=== PATIENT | female | born 1950 | race Caucasian/White ===

== ENCOUNTER 2016-08-31 13:43 | Emergency (ER) | payer MEDICARE, MEDICAID ==
[~2016-08-31] VITALS: Ht 157.5 cm; Wt 59.0 kg
[~2016-08-31 13:43] MED LIST: ADVAIR 100/501 PUFF1 INH; ALBUTEROL2.5 MG/3 M INH; AUGMENTIN 875-1 EACH PO; AZITHROMYCIN250 MG ORAL; CEPHALEXIN500 MG ORAL; ENTOCORT EC3 MG PO; LEVAQUIN500 MG ORAL; MECLIZINE HCL25 MG ORAL; MEDROL DOSEPAK4 MG ORAL; METRONIDAZOLE500 MG ORAL; NASONEX17 GM NASAL; NORCO 5-325 TA1 EACH ORAL; PREDNISONE20 MG ORAL; SILVADENE CREAM50 GM TOP; SINGULAIR10 MG ORAL; VICODIN 5-5001 EACH PO; XOPENEX0.5 MG HHN; XOPENEX0.63 MG/3 HHN; ZOFRAN ODT4 MG ORAL; [UNRECOGNIZED DRUG - OTHER] PO; [UNRECOGNIZED DRUG - REMARK]
--- NOTE | 2016-08-31 14:30 | Emergency Room Report ---
History of Present Illness General Chief Complaint: Lower Extremity Injury Source: Patient Present Illness HPI Patient is a 66-year-old female who presented after having increased pain to her right foot. The patient stated that her right second toe had been caught under a carpet and was plantarflexed. Patient reported having had difficulty moving her toe afterward and began having subsequent bruising. Patient had prior joint replacement surgery in the same toe. She has a noticed increased bruising. Allergies: Coded Allergies: No Known Allergies (Unverified , 07/05/12) Patient History Past Medical History: see triage record Reviewed Nursing Documentation: PMH: Agreed, PSxH: Agreed Nursing Documentation-PM Past Medical History: No History, Except For Hx Asthma: Yes Hx Gastrointestinal Problems: Yes - colitis Review of Systems All Other Systems: negative except mentioned in HPI Physical Exam Vital Signs Date Time Temp Pulse Resp B/P Pulse Ox O2 Delivery O2 Flow Rate FiO2 08/31/16 14:22 98.1 16 127/76 99 Room Air General Appearance: well appearing, no apparent distress, alert, GCS 15 Head: normocephalic, atraumatic ENT: hearing grossly normal, normal voice Neck: full range of motion, supple Respiratory: no respiratory distress, speaking full sentences Musculoskeletal: no calf tenderness, other - discoloration, decreased arom to right 2nd toe. Neurologic: normal inspection, alert, responsive, normal gait Psychiatric: mood/affect normal Skin: no rash, other - bruising Medical Decision Making Diagnostic Impression: Primary Impression: Toe fracture, right ER Course Patient presented for toe pain. Differential diagnoses included was not limited to fracture, dislocation, sprain among others. X-ray imaging of the right foot was ordered due to patient's difficulty moving her toe. Other X-Ray Diagnostic Results Other X-Ray Diagnostic Results : EP Interpretation: Yes Findings: no dislocation, other - toe fracture proximal intraphalangeal joint, s/p joint replacement, djd Number of Views: 3 Last Vital Signs Date Time Temp Pulse Resp B/P Pulse Ox O2 Delivery O2 Flow Rate FiO2 08/31/16 14:22 98.1 16 127/76 99 Room Air Status: improved Disposition: HOME, SELF-CARE Condition: Stable Scripts Tramadol Hcl* (ULTRAM*) 50 Mg Tablet 50 MG ORAL Q6H Y for For Pain, #15 TAB 0 Refills Prov: Harsha Domingo 08/31/16 Harsha Domingo Aug 31, 2016 14:29
[2016-08-31] MEDS ORDERED: TRAMADOL HCL50 MG ORAL (15:08)
[2016-08-31 15:20] VITALS: BP 127/76
--- NOTE | 2016-09-01 11:22 | Diagnostic Imaging Report ---
Indication: Pain Comparison: None Findings: 3 views of the right foot were obtained. There is no acute fracture identified. Patient is had a bunionectomy and osteotomy of the first metatarsal with fixation screws and pins. A partial joint replacement of the second MTP joint also noted. Sclerosis and periosteal/cortical thickening of the second proximal phalange and 2nd metatarsal are noted. Possibility of chronic osteomyelitis is not excluded. Impression: No acute injury identified. Evidence of previous surgery as described above. Enlargement and thickening of the second proximal phalange and metatarsal. Findings are possibly reactive or due to chronic osteomyelitis. Please correlate clinically
== END 2016-08-31 15:20 | disposition home or self-care (01) ==
LOC: EMR 14:44
DX: S92.511A Displaced fracture of proximal phalanx of right lesser toe(s), initial encounter for closed fracture (principal); X58.XXXA Exposure to other specified factors, initial encounter; Y92.9 Unspecified place or not applicable; Z87.19 Personal history of other diseases of the digestive system; Z87.09 Personal history of other diseases of the respiratory system
CPT/HCPCS: 99283

== ENCOUNTER 2016-11-24 15:17 | Emergency (ER) | payer MEDICARE, MEDICAID ==
[~2016-11-24] VITALS: Ht 157.5 cm; Wt 59.9 kg
[~2016-11-24 15:17] MED LIST changes: +TRAMADOL HCL50 MG ORAL
[2016-11-24] MEDS ORDERED: Vancomycin 1 GM in D5W 275 ML IVPB ONE (16:00)
--- NOTE | 2016-11-24 16:03 | Emergency Room Report ---
History of Present Illness General Chief Complaint: Skin Rash/Abscess Source: Medical Record Present Illness HPI 66 y/o female complains of right-sided facial pain for 2 days. States that it started with a pimple in her right nostril and since then has spread to her right cheek and right upper jaw. States that it's very difficult to the into move her mouth due to the pain. States the skin is very sensitive to touch. Denies any history of injury or recurrent infections. Denies any relieving factors. Has history of dental work in the past without any active dental complaints. States sxs are now extending into the infraorbital region but denies any visual complaints, neurologic complaints, stiff neck or headache. Allergies: Coded Allergies: No Known Allergies (Unverified , 07/05/12) Patient History Past Medical History: see triage record Past Surgical History: none Pertinent Family History: none Immunizations: UTD Reviewed Nursing Documentation: PMH: Agreed, PSxH: Agreed Nursing Documentation-PMH Hx Asthma: Yes Hx Gastrointestinal Problems: Yes - colitis Review of Systems All Other Systems: negative except mentioned in HPI Physical Exam Vital Signs Date Time Temp Pulse Resp B/P Pulse Ox O2 Delivery O2 Flow Rate FiO2 11/24/16 15:36 98.1 66 16 129/75 97 Room Air Sp02 EP Interpretation: reviewed, normal General Appearance: no apparent distress, alert, GCS 15, non-toxic Head: normocephalic, atraumatic Eyes: bilateral eye PERRL, bilateral eye normal inspection ENT: hearing grossly normal, normal pharynx, no angioedema, normal voice, other - dental caries present with abscent dentician Neck: full range of motion, supple/symm/no masses Respiratory: chest non-tender, lungs clear, normal breath sounds, speaking full sentences Cardiovascular #1: regular rate, rhythm, no edema Musculoskeletal: back normal, gait/station normal, normal range of motion, non- tender, calf tenderness Neurologic: alert, oriented x3, responsive, motor strength/tone normal, sensory intact, speech normal Psychiatric: judgement/insight normal, memory normal, mood/affect normal, no suicidal/homicidal ideation Skin: normal color, warm/dry, well hydrated, other - area of erythema on right inner nares with radiation of mild erythema along right facial area into the supraorbital region and right upper lip. Exquisitlly tender to touch w/o excessive heat, induration, discharge, or vessicules present. Lymphatic: no adenopathy Medical Decision Making PA Attestation Dr. Mckenna is my supervising physician with whom patient management has been discussed with. Diagnostic Impression: Primary Impression: Cellulitis and abscess of face ER Course Pt. presents to the ED c/o facial pain Ddx considered but are not limited to cellulitis, facial abscess, shingles, ludwigs angina, trauma, sinusitis, osteomyelitis Vital signs: are WNL, pt. is afebrile H&PE are most consistent with facial cellulitis ORDERS: CT scan maxillofacial w/ contrast, CBC, CMP, blood culture x 2, LDH, ESR ED INTERVENTIONS: !V Vanco 1g, Toradol 30mg. Patient states she feels much better after IV abx and toradol. Erythema and severity of tenderness has improved. DISCHARGE: At this time pt. is stable for d/c to home. Will provide printed patient care instructions, and any necessary prescriptions. Care plan and follow up instructions have been discussed with the patient prior to discharge. Laboratory Tests Test 11/24/16 15:50 11/24/16 16:00 White Blood Count 8.8 K/UL (4.8-10.8) Red Blood Count 3.55 M/UL (4.20-5.40) L Hemoglobin 10.3 G/DL (12.0-16.0) L Hematocrit 29.9 % (37.0-47.0) L Mean Corpuscular Volume 84 FL (80-99) Mean Corpuscular Hemoglobin 29.0 PG (27.0-31.0) Mean Corpuscular Hemoglobin Concent 34.5 G/DL (32.0-36.0) Red Cell Distribution Width 16.3 % (11.6-14.8) H Platelet Count 363 K/UL (150-450) Mean Platelet Volume 6.1 FL (6.5-10.1) L Neutrophils (%) (Auto) 69.2 % (45.0-75.0) Lymphocytes (%) (Auto) 22.6 % (20.0-45.0) Monocytes (%) (Auto) 7.3 % (1.0-10.0) Eosinophils (%) (Auto) 0.5 % (0.0-3.0) Basophils (%) (Auto) 0.5 % (0.0-2.0) Erythrocyte Sedimentation Rate 49 MM/HR (0-30) H Sodium Level 141 mEQ/L (135-145) Potassium Level 3.8 mEQ/L (3.4-4.9) Chloride Level 101 mEQ/L (98-107) Carbon Dioxide Level 26 mEQ/L (20-30) Anion Gap 14 (5-15) Blood Urea Nitrogen 15 mg/dL (7-23) Creatinine 0.6 mg/dL (0.5-0.9) Estimate Glomerular Filtration Rate > 60 mL/min (>60) Glucose Level 103 mg/dL (74-106) Calcium Level 9.8 mg/dL (8.6-10.2) Total Bilirubin 0.4 mg/dL (0.0-1.2) Aspartate Amino Transferase (AST) 23 U/L (5-40) Alanine Aminotransferase (ALT) 30 U/L (3-33) Alkaline Phosphatase 79 U/L (35-104) Lactate Dehydrogenase 193 U/L (135-230) Total Protein 6.6 g/dL (6.6-8.7) Albumin 3.9 g/dL (3.5-5.2) Globulin 2.7 g/dL Albumin/Globulin Ratio 1.4 (1.0-2.7) Urine Color Pale yellow Urine Appearance Clear Urine pH 8 (4.5-8.0) Urine Specific [place] 1.015 (1.005-1.035) Urine Protein Negative (NEGATIVE) Urine Glucose (UA) Negative (NEGATIVE) Urine Ketones Negative (NEGATIVE) Urine Occult Blood Negative (NEGATIVE) Urine Nitrite Negative (NEGATIVE) Urine Bilirubin Negative (NEGATIVE) Urine Urobilinogen Normal MG/DL (0.0-1.0) Urine Leukocyte Esterase 3+ (NEGATIVE) H Urine RBC 0-2 /HPF (0 - 2) Urine WBC 5-10 /HPF (0 - 2) H Urine Squamous Epithelial Cells Few /LPF (NONE/OCC) Urine Bacteria Few /HPF (NONE) CT/MRI/US Diagnostic Results CT/MRI/US Diagnostic Results : Imaging Test Ordered: CT Maxillofacial Impression Negative for abscess or osteomyelitis Last Vital Signs Date Time Temp Pulse Resp B/P Pulse Ox O2 Delivery O2 Flow Rate FiO2 11/24/16 17:35 98.3 75 18 124/71 99 Room Air Status: unchanged Disposition: HOME, SELF-CARE Condition: Stable Scripts Naproxen* (NAPROSYN*) 500 Mg Tablet 500 MG ORAL TWICE A DAY for 10 Days, #20 TAB Prov: MACRINA GALLEGOS P.AEly 11/24/16 Clindamycin Hcl* (CLINDAMYCIN HCL*) 150 Mg Capsule 300 MG ORAL TID for 10 Days, #30 CAP Prov: MACRINA GALLEGOS P.AEly 11/24/16 MACRINA GALLEGOS.AEly Nov 24, 2016 16:03
[2016-11-24] MEDS ORDERED: Vancomycin 1gm inj IVPB ONE (16:13)
[2016-11-24] MEDS ORDERED: Tubing IV Cassette IV ONE (16:14)
[2016-11-24] MEDS ORDERED: D5W 275 ML ONE (16:14)
[2016-11-24] MEDS ORDERED: Ketorolac 30mg Inj IV ONE (16:15)
[2016-11-24] MEDS ORDERED: TdaP Vaccine 0.5ml Syr IM ONE (16:15)
[2016-11-24 16:41] LABS: APPEARANCE,URINE CLEAR; KETONES,URINE NEGATIVE (NEGATIVE); LEUKOCYTE ESTERASE ,URINE 3+ (NEGATIVE); NITRITE,URINE NEGATIVE (NEGATIVE); PH,URINE 8 (4.5-8.0); PROTEIN,URINE NEGATIVE (NEGATIVE); UROBILINOGEN,URINE NORMAL MG/DL (0.0-1.0)
[2016-11-24 16:46] LABS: BASOPHILS % (AUTO) 0.5 % (0.0-2.0); EOSINOPHILS % (AUTO) 0.5 % (0.0-3.0); LYMPHOCYTES % (AUTO) 22.6 % (20.0-45.0); MEAN CORPUSCULAR HGB CONC 34.5 G/DL (32.0-36.0); MEAN CORPUSCULAR VOLUME 84 FL (80-99); MEAN PLATELET VOLUME 6.1 FL (6.5-10.1); MONOCYTES % (AUTO) 7.3 % (1.0-10.0); NEUTROPHILS % (AUTO) 69.2 % (45.0-75.0); PLATELET COUNT 363 K/UL (150-450); RED BLOOD COUNT 3.55 M/UL (4.20-5.40); RED CELL DISTRIBUTION WIDTH 16.3 % (11.6-14.8); WHITE BLOOD COUNT 8.8 K/UL (4.8-10.8)
[2016-11-24 16:55] LABS: ALANINE AMINOTRANSFERASE 30 U/L (3-33); ALBUMIN/GLOBULIN RATIO 1.4 (1.0-2.7); ANION GAP 14 (5-15); ASPARTATE AMINO TRANSFERASE 23 U/L (5-40); CALCIUM 9.8 mg/dL (8.6-10.2); CARBON DIOXIDE 26 mEQ/L (20-30); CHLORIDE 101 mEQ/L (98-107); CREATININE 0.6 mg/dL (0.5-0.9); GLOMERULAR FILTRATION RATE > 60 mL/min (>60); HEMOLYSIS 62; POTASSIUM 3.8 mEQ/L (3.4-4.9); SODIUM 141 mEQ/L (135-145); TOTAL PROTEIN 6.6 g/dL (6.6-8.7)
[2016-11-24 16:57] LABS: BACTERIA,URINE FEW /HPF; RBC,URINE 0-2 /HPF (0 - 2); SQUAMOUS EPITHELIAL CELL,UR FEW /LPF (NONE/OCC)
[2016-11-24 17:35] VITALS: BP 124/71
[2016-11-24] MEDS ORDERED: CLINDAMYCIN HC150 MG ORAL (18:23)
[2016-11-24] MEDS ORDERED: NAPROSYN500 M1 ORAL (18:23)
[2016-11-24 18:52] VITALS: BP 119/73
[2016-11-24] MEDS ORDERED: ACETAMINOPHEN-1 EAC1 ORAL (18:54)
[2016-11-24 18:55] VITALS: BP 119/73
--- NOTE | 2016-11-25 09:50 | Diagnostic Imaging Report ---
Indication: Right-sided facial pain history Technique: IV administration nonionic contrast. Spiral acquisitions obtained through the space. Multiplanar reconstructions were generated. Total dose length product 559 mGycm. CTDIvol(s) 28 mGy. Radiation dose was minimized using automated exposure control Comparison: None Findings: Streak artifact from dental amalgam may obscure pathology. Maxillary dental implants are noted. There is chronic appearing thickening of the right maxillary alveolar ridge. No abnormal soft tissue swelling. No abnormal fluid collections to suggest abscess. Visualized orbits are unremarkable. The visualized intracranial structures are unremarkable. There is minimal mucosal thickening of the medial maxillary poe bilaterally. The sinuses are otherwise clear. The vascular structures are unremarkable. The nasopharynx, oropharynx, hypopharynx are unremarkable. No facial or cervical mass or adenopathy demonstrated. Impression: Chronic dental changes, as described. No acute process. No evidence of facial abscess. This agrees with the preliminary interpretation provided overnight by Dr. Mir The CT scanner at [facility] is accredited by the [employer] and the scans are performed using protocols designed to limit radiation exposure to as low as reasonably achievable to attain images of sufficient resolution adequate for diagnostic evaluation.
== END 2016-11-24 18:55 | disposition home or self-care (01) ==
LOC: EMR 16:02
DX: L03.211 Cellulitis of face (principal); L02.01 Cutaneous abscess of face; Z23 Encounter for immunization; J45.909 Unspecified asthma, uncomplicated
CPT/HCPCS: 36415; 70487; 80053; 81001; 83615; 85025; 85651; 87040; 90471; 90715; 96360; 96372; 96374; 99284; J1885; J3370; Q9967

== ENCOUNTER 2017-12-20 19:38 | Emergency (ER) | payer MEDICARE, MEDICAID ==
[~2017-12-20] VITALS: Ht 157.5 cm; Wt 61.2 kg
[~2017-12-20 19:38] MED LIST changes: +ACETAMINOPHEN-1 EAC1 ORAL; +CLINDAMYCIN HC150 MG ORAL; +NAPROSYN500 M1 ORAL
[2017-12-20] MEDS ORDERED: Acetaminophen 500mg (ES) tab ORAL ONE (20:15)
[2017-12-20] MEDS ORDERED: Albuterol/Ipratropium 3ml neb HHN ONE (20:15)
[2017-12-20] MEDS ORDERED: Solu-MEDROL 125mg Inj IVP ONE (20:15)
[2017-12-20 20:58] LABS: BASOPHILS % (AUTO) 0.5 % (0.0-2.0); EOSINOPHILS % (AUTO) 1.4 % (0.0-3.0); HEMATOCRIT 38.4 % (37.0-47.0); HEMOGLOBIN 12.3 G/DL (12.0-16.0); LYMPHOCYTES % (AUTO) 12.3 % (20.0-45.0); MEAN CORPUSCULAR VOLUME 80 FL (80-99); MONOCYTES % (AUTO) 5.6 % (1.0-10.0); NEUTROPHILS % (AUTO) 80.2 % (45.0-75.0); PLATELET COUNT 344 K/UL (150-450); RED CELL DISTRIBUTION WIDTH 12.3 % (11.6-14.8); WHITE BLOOD COUNT 15.8 K/UL (4.8-10.8)
[2017-12-20 21:00] VITALS: BP 137/83
[2017-12-20 21:06] LABS: INR 1.1 (0.9-1.1)
[2017-12-20 21:09] LABS: ANION GAP 9 mmol/L (5-15); BLOOD UREA NITROGEN 12 mg/dL (7-18); CALCIUM 9.5 MG/DL (8.5-10.1); CARBON DIOXIDE 25 MMOL/L (21-32); CHLORIDE 105 MMOL/L (98-107); CREATININE 0.6 MG/DL (0.55-1.30); POTASSIUM 3.9 MMOL/L (3.5-5.1); SODIUM 139 MMOL/L (136-145)
[2017-12-20 21:13] LABS: ALANINE AMINOTRANSFERASE 20 U/L (12-78); ALBUMIN 3.4 G/DL (3.4-5.0); ALBUMIN/GLOBULIN RATIO 0.9 (1.0-2.7); ALKALINE PHOSPHATASE 70 U/L (46-116); ASPARTATE AMINO TRANSFERASE 22 U/L (15-37); BILIRUBIN,TOTAL 0.3 MG/DL (0.2-1.0)
[2017-12-20] MEDS ORDERED: Morphine Sulfate 4mg/ml Inj IVP ONE (21:15)
[2017-12-20] MEDS ORDERED: cefTRIAXone 1 GM in NS 55 ML IVPB ONE (21:15)
[2017-12-20 21:24] VITALS: BP 140/78
[2017-12-20] MEDS ORDERED: PREDNISONE20 MG ORAL (21:52)
[2017-12-20] MEDS ORDERED: CEPHALEXIN500 MG ORAL (21:52)
[2017-12-20 22:26] VITALS: BP 137/79
--- NOTE | 2017-12-20 22:53 | Emergency Room Report ---
History of Present Illness General Chief Complaint: Dyspnea/Respdistress Source: Patient, Medical Record Present Illness HPI Patient is a 67-year-old female who presented after increased difficulty breathing. Patient prior history of asthma. She reports having increased nonproductive cough associated with sore throat as well as right-sided earache. Patient had previously been on oral steroids. Patient prior history of ulcerative colitis. Patient had previously been taking medications for this. She denies any severe abdominal pain at this time. She had not been vomiting. Allergies: Coded Allergies: No Known Allergies (Unverified , 07/05/12) Patient History Past Medical History: see triage record Last Menstrual Period: n/a Now: No Reviewed Nursing Documentation: PMH: Agreed; PSxH: Agreed Nursing Documentation-PMH Past Medical History: No History, Except For Hx Asthma: Yes Hx Gastrointestinal Problems: Yes - Colitis Review of Systems All Other Systems: negative except mentioned in HPI Physical Exam Vital Signs Date Time Temp Pulse Resp B/P (MAP) Pulse Ox O2 Delivery O2 Flow Rate FiO2 12/20/17 19:45 98.7 87 21 142/67 93 Room Air 98.8 12/20/17 20:17 21 Sp02 EP Interpretation: reviewed, normal General Appearance: normal inspection, well appearing, no apparent distress, alert, GCS 15 Head: atraumatic ENT: normal ENT inspection, hearing grossly normal, normal voice Neck: normal inspection, full range of motion, supple, no bony tend Respiratory: normal inspection, lungs clear, normal breath sounds, no respiratory distress, no retraction, no wheezing Cardiovascular #1: regular rate, rhythm, no edema Gastrointestinal: normal inspection, normal bowel sounds, non tender, soft, no guarding, no hernia Genitourinary: no CVA tenderness Musculoskeletal: normal inspection, back normal, normal range of motion Neurologic: normal inspection, alert, oriented x3, responsive, continuous mining operator III-XII nml as tested, speech normal Psychiatric: normal inspection, judgement/insight normal, mood/affect normal Skin: normal inspection, normal color, no rash Medical Decision Making Diagnostic Impression: Primary Impression: asthma exacerbation ER Course patient presented for shortness of breath. Differential included but was not limited to anemia, pneumonia, pneumothorax, myocardial infarction, pericardial effusion, congestive heart failure, acidosis. Because of complexity of patient' s case laboratory testing and imaging studies were ordered. The patient was noted to have elevated white blood count consistent with infection versus colonic inflammation. The patient noted have prior history of ulcer colitis. The patient was given oral antibiotics in the emergency department. The patient was given pain medications with some improvement. The patient stated that she wanted to go home and take her previously prescribed medications. The patient was given breathing treatment as well as oral steroids in emergency prior with some improvement in her breathing. The patient was offered admission and she declined The patient is advised to follow up with primary care doctor in 1-2 days. Patient is advised to return if any worsening condition or if any changes in status that are concerning. This report is dictated with [employer] solvent plant operator software which may occasionally lead to discrepancies related to use of this software. Labs Test 12/20/17 20:23 White Blood Count 15.8 K/UL (4.8-10.8) Red Blood Count 4.80 M/UL (4.20-5.40) Hemoglobin 12.3 G/DL (12.0-16.0) Hematocrit 38.4 % (37.0-47.0) Mean Corpuscular Volume 80 FL (80-99) Mean Corpuscular Hemoglobin 25.6 PG (27.0-31.0) Mean Corpuscular Hemoglobin Concent 32.0 G/DL (32.0-36.0) Red Cell Distribution Width 12.3 % (11.6-14.8) Platelet Count 344 K/UL (150-450) Mean Platelet Volume 7.2 FL (6.5-10.1) Neutrophils (%) (Auto) 80.2 % (45.0-75.0) Lymphocytes (%) (Auto) 12.3 % (20.0-45.0) Monocytes (%) (Auto) 5.6 % (1.0-10.0) Eosinophils (%) (Auto) 1.4 % (0.0-3.0) Basophils (%) (Auto) 0.5 % (0.0-2.0) Prothrombin Time 11.7 SEC (9.30-11.50) Prothromb Time International Ratio 1.1 (0.9-1.1) Activated Partial Thromboplast Time 29 SEC (23-33) Sodium Level 139 MMOL/L (136-145) Potassium Level 3.9 MMOL/L (3.5-5.1) Chloride Level 105 MMOL/L (98-107) Carbon Dioxide Level 25 MMOL/L (21-32) Anion Gap 9 mmol/L (5-15) Blood Urea Nitrogen 12 mg/dL (7-18) Creatinine 0.6 MG/DL (0.55-1.30) Estimat Glomerular Filtration Rate > 60 mL/min (>60) Glucose Level 112 MG/DL (74-106) Calcium Level 9.5 MG/DL (8.5-10.1) Total Bilirubin 0.3 MG/DL (0.2-1.0) Aspartate Amino Transf (AST/SGOT) 22 U/L (15-37) Alanine Aminotransferase (ALT/SGPT) 20 U/L (12-78) Alkaline Phosphatase 70 U/L (46-116) Total Protein 7.2 G/DL (6.4-8.2) Albumin 3.4 G/DL (3.4-5.0) Globulin 3.8 g/dL Albumin/Globulin Ratio 0.9 (1.0-2.7) Lipase 180 U/L (73-393) EKG Diagnostic Results Rate: normal - 82 Rhythm: NSR ST Segments: no acute changes ASA given to the pt in ED: No Last Vital Signs Date Time Temp Pulse Resp B/P (MAP) Pulse Ox O2 Delivery O2 Flow Rate FiO2 12/20/17 22:26 98.2 79 18 137/79 96 Room Air 98.2 12/20/17 20:28 21 Status: improved Disposition: HOME, SELF-CARE Scripts Cephalexin* (KEFLEX*) 500 Mg Capsule 500 MG ORAL EVERY 6 HOURS, #28 CAP Prov: Harsha Domingo MD 12/20/17 Prednisone* (PREDNISONE*) 20 Mg Tablet 60 MG ORAL DAILY, #12 TAB Prov: Harsha Domingo MD 12/20/17 Patient Instructions: Chronic Obstructive Pulmonary Disease Exacerbation Harsha Domingo MD December 20, 2017 22:53
--- NOTE | 2017-12-22 13:52 | Cardiology Report ---
APPROVED REPORT EKG Measurement Heart [id number] Normal sinus rhythm with sinus arrhythmia Normal ECG
== END 2017-12-20 22:26 | disposition home or self-care (01) ==
LOC: EMR 21:27 → CANBEDREQ 21:51 → EMR 22:26
DX: J45.901 Unspecified asthma with (acute) exacerbation (principal)
CPT/HCPCS: 36415; 80053; 83690; 85025; 85610; 85730; 87040; 93005; 94640; 94664; 96374; 96375; 99284; J0696; J2270; J2405; J2930; J7620

== ENCOUNTER 2018-06-27 19:28 | Emergency (ER) | payer MEDICARE, MEDICAID ==
[~2018-06-27] VITALS: Ht 154.9 cm; Wt 55.3 kg
[2018-06-27] MEDS ORDERED: PREDNISONE20 MG ORAL (19:54)
[2018-06-27] MEDS ORDERED: BENADRYL25 M3 PO (19:54)
[2018-06-27] MEDS ORDERED: AUGMENTIN 875-1 EAC1 ORAL (19:54)
[2018-06-27] MEDS ORDERED: ACETAMINOPHEN-1 EAC1 ORAL (19:54)
[2018-06-27] MEDS ORDERED: Tylenol #3 tab (300mg/30mg) ORAL ONE (20:15)
[2018-06-27 20:25] VITALS: BP 102/54
[2018-06-27 20:29] VITALS: BP 102/54
--- NOTE | 2018-07-03 07:04 | Emergency Room Report ---
History of Present Illness General Chief Complaint: Headache Source: Patient Present Illness HPI Patient presents with several different complaints Main complaint was feeling sensation of sore throat Mild cough General body ache Patient also complained of a red marking in the anterior part of her nose reports that she has squeezed the area yesterday and noticed pus from the area Denies any posterior neck pain denies any photophobia Denies any chest pain or shortness of breath denies any recent travel Allergies: Coded Allergies: No Known Allergies (Unverified , 07/05/12) Patient History Past Medical History: see triage record Pertinent Family History: none Last Menstrual Period: 20 years ago. Now: No Reviewed Nursing Documentation: PMH: Agreed; PSxH: Agreed Nursing Documentation-PMH Hx Asthma: Yes Hx Gastrointestinal Problems: Yes - collitis Review of Systems All Other Systems: negative except mentioned in HPI Physical Exam 99% on room air Sp02 EP Interpretation: reviewed, normal General Appearance: well appearing, no apparent distress Head: normocephalic, atraumatic Eyes: bilateral eye PERRL, bilateral eye EOMI ENT: hearing grossly normal, TMs + canals normal, uvula midline, pharyngeal erythema, other - Small pustule anterior nose, no obvious dermatomal pattern, no conjunctivitis to suggest herpetic lesion Neck: full range of motion, supple, no meningismus, no bony tend Respiratory: lungs clear, normal breath sounds, no rhonchi, no respiratory distress, no retraction, no accessory muscle use Cardiovascular #1: normal peripheral pulses, regular rate, rhythm, no edema, no gallop, no JVD, no murmur Gastrointestinal: normal bowel sounds, non tender, soft, no mass, no organomegaly, non-distended, no guarding, no hernia, no pulsatile mass, no rebound Genitourinary: no CVA tenderness Musculoskeletal: normal inspection Neurologic: oriented x3, responsive, ornament stitcher III-XII nml as tested, motor strength/ tone normal, sensory intact Psychiatric: mood/affect normal Skin: palpation normal, other - As above patient also has a small urticarial lesion behind the left upper knee, lower thigh area, Lymphatic: normal inspection, no adenopathy Medical Decision Making Diagnostic Impression: Primary Impression: cellulitis Additional Impressions: insect bite sinus headache ER Course Given the patient's history and exam Multiple interventions made regarding patient's cellulitis possible insect bite Patient otherwise remains medically stable and clear Appropriate for initial conservative outpatient trial Status: improved Disposition: HOME, SELF-CARE Condition: Stable Scripts Prednisone* (PREDNISONE*) 20 Mg Tablet 20 MG ORAL BID, #8 TAB Prov: Boo Ly DO 06/27/18 Diphenhydramine HCl (Benadryl) 25 Mg Capsule 25 MG PO TID for 7 Days, CAP Prov: Boo Ly DO 06/27/18 Amoxicillin/Potassium Clav 875-125* (AUGMENTIN 875-125 TABLET*) 1 Each Tablet 1 TAB ORAL TWICE A DAY, #20 TAB Prov: Boo Ly DO 06/27/18 Acetaminophen With Codeine (T#3) (TYLENOL #3 TAB*) Y Tab 1 TAB ORAL Q8H PRN for For Pain, #12 TAB Prov: Boo Ly DO 06/27/18 Referrals: MICAH JOE (PCP) Patient Instructions: Sinus Headache, Cellulitis, [id number], Insect Bite, [id number] Additional Instructions: Patient is provided with the discharge instructions notified to follow up with primary doctor in the next 2-3 days otherwise return to the er with any worsening symptoms. Please note that this report is being documented using [employer] technology. This can lead to erroneous entry secondary to incorrect interpretation by the dictating instrument. Boo Ly DO Jul 03, 2018 07:04
== END 2018-06-27 20:30 | disposition home or self-care (01) ==
LOC: EMR 19:53
DX: L03.116 Cellulitis of left lower limb (principal); S80.262A Insect bite (nonvenomous), left knee, initial encounter; W57.XXXA Bitten or stung by nonvenomous insect and other nonvenomous arthropods, initial encounter; Y92.9 Unspecified place or not applicable; R51 Headache; J45.909 Unspecified asthma, uncomplicated
CPT/HCPCS: 99282

== ENCOUNTER 2018-07-15 19:45 | Emergency (ER) | payer MEDICARE, MEDICAID ==
[~2018-07-15] VITALS: Ht 152.4 cm; Wt 55.8 kg
[~2018-07-15 19:45] MED LIST changes: +AUGMENTIN 875-1 EAC1 ORAL; +BENADRYL25 M3 PO
[2018-07-15 19:57] VITALS: BP 148/68
[2018-07-15] MEDS: Ipratropium 0.02% Inh Soln 2.5ml UD HHN SCH ×3 (20:09→20:39)
[2018-07-15] MEDS: Albuterol ud Inhalation HHN SCH ×3 (20:12→20:40)
[2018-07-15] MEDS ORDERED: Acetaminophen 500mg (ES) tab ORAL ONE (20:45)
--- NOTE | 2018-07-15 20:56 | Emergency Room Report ---
History of Present Illness General Chief Complaint: Asthma Source: Patient Present Illness HPI 68-year-old female presents ED for evaluation. Patient complaining of shortness of breath for 3 hours. History of asthma. States she is having a hard time breathing. notes productive cough. Denies fevers or chills. Denies chest pain. Denies sick contacts or recent travel. No other aggravating relieving factors. Denies any other associated symptoms Allergies: Coded Allergies: No Known Allergies (Unverified , 07/05/12) Patient History Past Medical History: asthma Past Surgical History: none Pertinent Family History: none Social History: Denies: smoking, alcohol use, drug use Last Menstrual Period: UNK Now: No Immunizations: UTD Reviewed Nursing Documentation: PMH: Agreed; PSxH: Agreed Nursing Documentation-PMH Hx Asthma: Yes Hx Gastrointestinal Problems: Yes - collitis Review of Systems All Other Systems: negative except mentioned in HPI Physical Exam Vital Signs Date Time Temp Pulse Resp B/P (MAP) Pulse Ox O2 Delivery O2 Flow Rate FiO2 07/15/18 19:57 98.1 72 16 146/58 98 Room Air 07/15/18 20:08 21 Sp02 EP Interpretation: reviewed, normal General Appearance: no apparent distress, alert, GCS 15, non-toxic Head: normocephalic, atraumatic Eyes: bilateral eye normal inspection, bilateral eye PERRL ENT: hearing grossly normal, normal pharynx, no angioedema, normal voice Neck: full range of motion, supple/symm/no masses Respiratory: decreased breath sounds, wheezing Cardiovascular #1: regular rate, rhythm, no edema Cardiovascular #2: 2+ carotid (R), 2+ carotid (L), 2+ radial (R), 2+ radial (L) , 2+ dorsalis pedis (R), 2+ dorsalis pedis (L) Gastrointestinal: normal bowel sounds, non tender, soft, non-distended, no guarding, no rebound Rectal: deferred Genitourinary: normal inspection, no CVA tenderness Musculoskeletal: back normal, gait/station normal, normal range of motion, non- tender Neurologic: alert, oriented x3, responsive, motor strength/tone normal, sensory intact, speech normal Psychiatric: judgement/insight normal, memory normal, mood/affect normal, no suicidal/homicidal ideation Reflexes: 3+ bicep (R), 3+ bicep (L), 3+ tricep (R), 3+ tricep (L), 3+ knee (R) , 3+ knee (L) Skin: normal color, no rash, warm/dry, well hydrated Lymphatic: no adenopathy Medical Decision Making Diagnostic Impression: Primary Impression: Asthma attack Qualified Codes: J45.901 - Unspecified asthma with (acute) exacerbation Additional Impression: Atypical pneumonia ER Course Hospital Course 68-year-old female presents to ED complaining of cough, wheezing Differential diagnoses include: URI, bronchitis, asthma/COPD, pneumonia Clinical course Patient placed on stretcher. After initial history and physical I ordered prednisone and nebulizer treatment. Chest x-ray shows haziness in the left lower lung field. Clinical concern for pneumonia. We will discharge with antibiotics Upon reassessment patient states cough and symptoms have improved. safe for discharge with close outpatient followup Diagnosis - asthma attack, atypical pneumonia Stable and discharged home with prescriptions for Rx zpack, prednisone, albuterol. Instructed to followup with PMD. Return to ED if symptoms recur or worsen Chest X-Ray Diagnostic Results Chest X-Ray Diagnostic Results : Chest X-Ray Ordered: Yes # of Views/Limited/Complete: 1 View Indication: Shortness of Breath EP Interpretation: Yes Interpretation: no effusion, no pneumothorax Impression: Other - pneumonia Electronically Signed by: Electronically signed by Elvis Brenner MD Last Vital Signs Date Time Temp Pulse Resp B/P (MAP) Pulse Ox O2 Delivery O2 Flow Rate FiO2 07/15/18 20:41 81 18 99 Room Air 21 07/15/18 19:57 98.1 146/58 Status: improved Disposition: HOME, SELF-CARE Condition: Stable Scripts Azithromycin* (ZITHROMAX*) 250 Mg Tablet 250 MG ORAL DAILY, #6 TAB 0 Refills Take two tables once daily for 1 day, then one tablet once daily for 4 days. Prov: Elvis Brenner MD 07/15/18 Albuterol Sulfate* (ALBUTEROL SULFATE MDI*) 8.5 Gm Hfa.aer.ad 2 PUFF INH Q6H, #1 EA 0 Refills Prov: Elvis Brenner MD 07/15/18 Prednisone* (PREDNISONE*) 20 Mg Tablet 40 MG ORAL DAILY, #10 TAB Prov: Elvis Brenner MD 07/15/18 Elvis Brenner MD Jul 15, 2018 20:56
[2018-07-15] MEDS ORDERED: PREDNISONE20 MG ORAL (21:16)
[2018-07-15] MEDS ORDERED: ALBUTEROL SULF8.5 GM INH (21:16)
[2018-07-15] MEDS ORDERED: ZITHROMAX250 MG ORAL (21:16)
[2018-07-15 21:30] VITALS: BP 132/74
--- NOTE | 2018-07-16 09:21 | Diagnostic Imaging Report ---
Indication: Shortness of breath Technique: One view of the chest Comparison: 11/21/2013 Findings: There is some atelectasis or scarring in the right mid to lower lung, not definitely evident previously. The heart size is upper limits normal. The lungs and pleural spaces are otherwise clear. Impression: Right lung atelectasis or scarring. No acute process otherwise
== END 2018-07-15 22:37 | disposition home or self-care (01) ==
LOC: EMR 21:31
DX: J45.901 Unspecified asthma with (acute) exacerbation (principal); J18.9 Pneumonia, unspecified organism
CPT/HCPCS: 71045; 94640; 94664; 99284; J7512

== ENCOUNTER 2019-03-02 19:17 | Emergency (ER) | payer MEDICARE, MEDICAID ==
[~2019-03-02] VITALS: Ht 154.9 cm; Wt 58.1 kg
[~2019-03-02 19:17] MED LIST changes: +ALBUTEROL SULF8.5 GM INH; +ZITHROMAX250 MG ORAL
[2019-03-02 19:28] VITALS: BP 110/57
--- NOTE | 2019-03-02 19:29 | NUR ---
ED Nurse Note: Patient walked in to ER c/o right wrist and left flank pain 10/10. Stated that fell today arownd noon. AAO x4, VSS at this time, skin is dry warm to touch. patient was connected to the monitor, will continue to monitor. ER MD at bed side.
[2019-03-02] MEDS ORDERED: Acetaminophen 500mg (ES) tab ORAL ONE (19:30)
--- NOTE | 2019-03-02 19:32 | NUR ---
ED Nurse Note: Patient is down for CT
--- NOTE | 2019-03-02 19:40 | NUR ---
ED Nurse Note: Patient is back from CT, no acute disstress noticed.
[2019-03-02] MEDS ORDERED: LIDODERM700 M1 TOPIC (20:35)
[2019-03-02] MEDS ORDERED: TYLENOL EXTRA500 MG ORAL (20:35)
[2019-03-02 20:42] VITALS: BP 110/57
--- NOTE | 2019-03-02 20:43 | NUR ---
ED Nurse Note: Pt cleared by health care Provider for discharge. DC instructions/prescription was given and explained to pt and verbalized understanding of teachings. All medical deviecs such as ID band removed. Pt is AAO x4, ambulatory and left with all personal belongings.
--- NOTE | 2019-03-02 21:24 | Emergency Room Report ---
History of Present Illness General Chief Complaint: Upper Extremity Injury Source: Patient Present Illness HPI 69-year-old female presents ED for evaluation. Complaining of right hand and wrist pain. Also complaining of left rib pain. States that she had mechanical trip and fall yesterday. Denies hitting her head or LOC. Pain is throbbing, 9 out of 10, nonradiating. States it was difficult for her to sleep yesterday because of the pain. Denies any other injuries. No other aggravating relieving factors. Denies any other associated symptoms Allergies: Coded Allergies: No Known Allergies (Unverified , 07/05/12) Patient History Past Medical History: none Past Surgical History: none Pertinent Family History: none Social History: Denies: smoking, alcohol use, drug use Now: No Immunizations: UTD Reviewed Nursing Documentation: PMH: Agreed; PSxH: Agreed Nursing Documentation-PMH Hx Asthma: Yes Hx Gastrointestinal Problems: Yes - collitis Review of Systems All Other Systems: negative except mentioned in HPI Physical Exam Vital Signs Date Time Temp Pulse Resp B/P (MAP) Pulse Ox O2 Delivery O2 Flow Rate FiO2 03/02/19 19:22 97.9 66 20 95 Room Air 03/02/19 19:28 110/57 Sp02 EP Interpretation: reviewed, normal General Appearance: no apparent distress, alert, GCS 15, non-toxic Head: normocephalic, atraumatic Eyes: bilateral eye normal inspection, bilateral eye PERRL ENT: hearing grossly normal, normal pharynx, no angioedema, normal voice Neck: full range of motion, supple/symm/no masses Respiratory: lungs clear, normal breath sounds, speaking full sentences, other - L sided rib tenderness Cardiovascular #1: regular rate, rhythm, no edema Cardiovascular #2: 2+ carotid (R), 2+ carotid (L), 2+ radial (R), 2+ radial (L) , 2+ dorsalis pedis (R), 2+ dorsalis pedis (L) Gastrointestinal: normal bowel sounds, non tender, soft, non-distended, no guarding, no rebound Rectal: deferred Genitourinary: normal inspection, no CVA tenderness Musculoskeletal: back normal, gait/station normal, normal range of motion, tender - R wrist. snuffbox tenderness Neurologic: alert, oriented x3, responsive, motor strength/tone normal, sensory intact, speech normal Psychiatric: judgement/insight normal, memory normal, mood/affect normal, no suicidal/homicidal ideation Reflexes: 3+ bicep (R), 3+ bicep (L), 3+ tricep (R), 3+ tricep (L), 3+ knee (R) , 3+ knee (L) Lymphatic: no adenopathy Procedures Splinting Splinting : Consent: Verbal Pre-Made Type: velcro Splint: wrist Pre-Proc Neuro Vasc Exam: normal Post-Proc Neuro Vasc Exam: normal Patient Tolerated: Well Complications: None Medical Decision Making Diagnostic Impression: Primary Impression: Rib contusion Qualified Codes: S20.212A - Contusion of left front wall of thorax, initial encounter Additional Impression: Wrist injury Qualified Codes: S69.91XA - Unspecified injury of right wrist, hand and finger (s), initial encounter ER Course Hospital Course 69 yo F presents with L rib pain R wrist pain s/p fall Differential diagnoses include: Fracture, dislocation, sprain, contusion Clinical course Patient placed on stretcher. After initial history and physical, I ordered pain medications and Xrays of R wrist/hand. L rib series Xrays prelim read shows no acute fracture/dislocation/PTX. placed in wrist splint discussed findings with patient. Safe for discharge with close outpatient follow-up. Will provide referrals Diagnosis - rib contusion, wrist injury Stable and discharged to home. weight bear as tolerated. Followup with PMD/ ortho. Return to ED if symptoms recur or worsen Other X-Ray Diagnostic Results Other X-Ray Diagnostic Results #1: X-Ray ordered: L rib series # of Views/Limited Vs Complete: 3 View Indication: Pain EP Interpretation: Yes Interpretation: no dislocation, no soft tissue swelling, no fractures, other - no PTX Impression: No acute disease Electronically Signed by: Electronically signed by Elvis Brenner MD Other X-Ray Diagnostic Results #2: X-Ray ordered: R hand # of Views/Limited Vs Complete: 3 View Indication: Pain EP Interpretation: Yes Interpretation: no dislocation, no soft tissue swelling, no fractures Impression: No acute disease Electronically Signed by: Electronically signed by Elvis Brenner MD Other X-Ray Diagnostic Results #3: X-Ray ordered: R wrist # of Views/Limited Vs Complete: 3 View Indication: Pain EP Interpretation: Yes Interpretation: no dislocation, no soft tissue swelling, no fractures Impression: No acute disease Electronically Signed by: Electronically signed by Elvis Brenner MD Last Vital Signs Date Time Temp Pulse Resp B/P (MAP) Pulse Ox O2 Delivery O2 Flow Rate FiO2 03/02/19 20:42 97.9 68 20 110/57 95 Room Air Status: improved Disposition: HOME, SELF-CARE Condition: Stable Scripts Lidocaine (Lidoderm) 1 Each Adh..patch 1 PATCH TOPIC DAILY, #7 PATCH 0 Refills Patch(es) may remain in place for up to 12 hours in any 24-hour period. Prov: Elvis Brenner MD 03/02/19 Acetaminophen* (TYLENOL EXTRA STRENGTH*) 500 Mg Tablet 500 MG ORAL Q8H PRN for Prn Headache/Temp > 101, #30 TAB 0 Refills Prov: Elvis Brenner MD 03/02/19 [facility] Open 24 hour /7 days a week by Appointment Only [address] [facility] [id number] Patient Instructions: Wrist Pain, [id number] Elvis Brenner MD Mar 02, 2019 21:24
--- NOTE | 2019-03-03 10:56 | Diagnostic Imaging Report ---
Indication: Right wrist pain COMPARISON: None Findings: 3 views of the right wrist were obtained. The bones are osteopenic. There is moderate arthrosis at the base of the first metacarpal of the thumb as well as scaphotrapezium trapezoid joint with marginal periarticular irregularity and subchondral sclerosis/osteophyte formation. Findings consistent with degenerative arthritis. On the lateral view there is dorsal tilt of the lunate. IMPRESSION: No acute injury identified. Moderate arthrosis. Dorsal tilt of the lunate may be degenerative and related to carpal instability. Correlate clinically.
--- NOTE | 2019-03-03 10:57 | Diagnostic Imaging Report ---
Indication: Right hand pain Findings: 3 views of the right hand were obtained. The bones are mildly osteopenic. Arthrosis of the carpus and wrist are discussed in the wrist report. In terms of the hand, there are degenerative changes characterized by joint space narrowing and moderate osteophyte formation most severe within the second and third distal interphalangeal joints. No acute fracture is identified. IMPRESSION: Moderate to severe arthritis
--- NOTE | 2019-03-03 11:12 | Diagnostic Imaging Report ---
Indication: Left sided rib pain. Trauma. Findings: 4 views of the left chest wall was obtained for evaluation of the ribs. There is no acute fracture identified. There is no soft tissue swelling demonstrated. The lung is essentially clear. The bones are osteopenic. There is no pneumothorax. The costophrenic angle is sharp. Other osseous structures visualized are unremarkable. Impression: Negative left unilateral rib series
== END 2019-03-02 20:44 | disposition home or self-care (01) ==
LOC: EMR 19:30
DX: S69.91XA Unspecified injury of right wrist, hand and finger(s), initial encounter (principal); S20.212A Contusion of left front wall of thorax, initial encounter; M25.541 Pain in joints of right hand; W01.0XXA Fall on same level from slipping, tripping and stumbling without subsequent striking against object, initial encounter; Y92.9 Unspecified place or not applicable
CPT/HCPCS: 99284

== ENCOUNTER 2019-07-12 17:28 | Inpatient (IN) | payer MEDICARE, MEDICAID ==
[~2019-07-12] VITALS: Ht 165.1 cm; Wt 59.9 kg
[~2019-07-12 17:28] MED LIST changes: +LIDODERM700 M1 TOPIC; +TYLENOL EXTRA500 MG ORAL
[2019-07-12 17:40] VITALS: BP 131/71
--- NOTE | 2019-07-12 17:40 | NUR ---
ED Nurse Note: Patient arrived to ED in respiratory distress d/t asthma exacerbation. Patient immediately placed on the nurse monitoring and breathing treatment started by RT. Patient AxO x 4, no other complaints. Bed in lowest position. Blood drawn and sent to lab.
[2019-07-12] MEDS: Albuterol/Ipratropium 3ml neb HHN SCH ×3 (17:42→18:49)
[2019-07-12] MEDS ORDERED: Dexamethasone 4mg/ml vial IVP ONE (17:45)
[2019-07-12 18:15] LABS: BASOPHILS % (AUTO) 0.7 % (0.0-2.0); EOSINOPHILS % (AUTO) 1.8 % (0.0-3.0); HEMATOCRIT 31.6 % (37.0-47.0); HEMOGLOBIN 9.6 G/DL (12.0-16.0); LYMPHOCYTES % (AUTO) 25.2 % (20.0-45.0); MEAN CORPUSCULAR VOLUME 68 FL (80-99); MONOCYTES % (AUTO) 6.4 % (1.0-10.0); NEUTROPHILS % (AUTO) 65.8 % (45.0-75.0); PLATELET COUNT 472 K/UL (150-450); RED BLOOD COUNT 4.67 M/UL (4.20-5.40); RED CELL DISTRIBUTION WIDTH 13.9 % (11.6-14.8)
[2019-07-12 18:26] LABS: INR 0.9 (0.9-1.1)
[2019-07-12 18:27] LABS: ANION GAP 12 mmol/L (5-15); BLOOD UREA NITROGEN 22 mg/dL (7-18); CALCIUM 10.3 MG/DL (8.5-10.1); CARBON DIOXIDE 24 MMOL/L (21-32); CHLORIDE 105 MMOL/L (98-107); CREATININE 0.8 MG/DL (0.55-1.30); POTASSIUM 3.9 MMOL/L (3.5-5.1); SODIUM 141 MMOL/L (136-145)
[2019-07-12] MEDS ORDERED: Ketorolac 30mg Inj IV ONE (18:30)
[2019-07-12 18:32] LABS: ALANINE AMINOTRANSFERASE 22 U/L (12-78); ALBUMIN 3.8 G/DL (3.4-5.0); ALBUMIN/GLOBULIN RATIO 0.9 (1.0-2.7); ALKALINE PHOSPHATASE 73 U/L (46-116); ASPARTATE AMINO TRANSFERASE 15 U/L (15-37); BILIRUBIN,TOTAL 0.3 MG/DL (0.2-1.0)
[2019-07-12 19:06] LABS: APPEARANCE,URINE SLIGHTLY CLOUDY; BILIRUBIN, URINE NEGATIVE (NEGATIVE); GLUCOSE, URINE (UA) NEGATIVE (NEGATIVE); KETONES,URINE 1+ (NEGATIVE); LEUKOCYTE ESTERASE ,URINE 3+ (NEGATIVE); NITRITE,URINE NEGATIVE (NEGATIVE); PH,URINE 5 (4.5-8.0); PROTEIN,URINE 1+ (NEGATIVE); UROBILINOGEN,URINE 1 MG/DL (0.0-1.0)
[2019-07-12 19:14] LABS: COLOR,URINE YELLOW
[2019-07-12 19:15] VITALS: BP 125/75
--- NOTE | 2019-07-12 19:15 | NUR ---
ED Nurse Note: Pt resting in bed, ERMD at bedside as well as RT and family, pt wants to possibly AMA, pt decided to be admitted, awaiting bed in TELE, pt VSS
[2019-07-12] MEDS ORDERED: Zolpidem 5mg tab ORAL PRN (19:30)
[2019-07-12] MEDS ORDERED: traMADol 50mg tab ORAL PRN (19:30)
--- NOTE | 2019-07-12 19:33 | Emergency Room Report ---
History of Present Illness General Chief Complaint: Asthma Source: Patient (Concha Addison) Present Illness HPI 69-year-old female with history of asthma and COPD here due to asthma exacerbation that started today. Patient reports that she has been coughing for the past few days, using her inhaler and taking her asthma medication with minimal relief. Patient complains of continuous wheezing, shortness of breath, and chest pressure. Denies chest pain and the pain radiation. Denies palpitation, abdominal pain nausea vomiting. Complains of headache rating a 10 out of 10 that started today when she was short of breath. Patient reports that she used to be a heavy tobacco smoker however has not been smoking in the past few years. Denies fever and chills, sore throat, congestion, abdominal pain nausea vomiting. Denies drug use (Concha Addison) Allergies: Coded Allergies: No Known Allergies (Unverified , 07/05/12) Patient History Past Medical History: see triage record Past Surgical History: unable to obtain Pertinent Family History: none Social History: Reports: smoking - hx of tobacco smoke Now: No Immunizations: UTD Reviewed Nursing Documentation: PMH: Agreed; PSxH: Agreed (Concha Addison) Nursing Documentation-PMH Past Medical History: No History, Except For Hx Asthma: Yes Hx Gastrointestinal Problems: Yes - collitis (Concha Addison) Review of Systems All Other Systems: negative except mentioned in HPI (Concha Addison) Physical Exam Vital Signs Date Time Temp Pulse Resp B/P (MAP) Pulse Ox O2 Delivery O2 Flow Rate FiO2 07/12/19 17:30 98.2 84 32 131/71 (91) 91 Room Air 07/12/19 17:44 21 Sp02 EP Interpretation: reviewed, abnormal - hopoxic General Appearance: no apparent distress, alert, GCS 15, non-toxic Head: normocephalic, atraumatic Eyes: bilateral eye normal inspection, bilateral eye PERRL ENT: hearing grossly normal, normal pharynx, no angioedema, normal voice Neck: full range of motion, supple/symm/no masses Respiratory: chest non-tender, no rhonchi, no respiratory distress, no retraction, no accessory muscle use, speaking full sentences, wheezing Cardiovascular #1: regular rate, rhythm, no edema, no gallop, no murmur, normal capillary refill Gastrointestinal: non tender Rectal: deferred Genitourinary: no CVA tenderness Musculoskeletal: back normal, digits/nails normal, no calf tenderness Neurologic: alert, motor strength/tone normal, oriented x3, sensory intact, responsive, speech normal Psychiatric: judgement/insight normal Skin: no rash Lymphatic: normal inspection, no adenopathy (Concha Addison) Medical Decision Making PA Attestation All diagnoses and treatment plans were reviewed and discussed with my supervising physician Dr. Frye (Concha Addison) PA Attestation I saw this patient along with HILARIO Adam and agree with current treatment and care plan. Briefly, this is a 69-year-old female with history of asthma presenting for acute shortness of breath and respiratory distress. URI symptoms for several days and shortness of breath getting worse. She arrived in moderate respiratory distress, tachypnea, tachycardic. Given IV dexamethasone, multiple breathing treatments with improvement in her saturations. She is currently breathing comfortably on 4 L nasal cannula. Arterial blood gas showed hypoxia with a PO2 level less than 45. Patient did have set desaturations without nasal cannula but quickly improved on nasal cannula. Borderline tachycardia now with heart rate in the 100s. Other labs are within normal limits. No obvious infiltrate on chest x-ray. Patient will be admitted to telemetry service for further treatment of asthma exacerbation. (Lennox Frye MD) Diagnostic Impression: Primary Impression: Hypoxia ER Course 69-year-old female with history of asthma and COPD here due to asthma exacerbation that started today. Patient reports that she has been coughing for the past few days, using her inhaler and taking her asthma medication with minimal relief. Patient complains of continuous wheezing, shortness of breath, and chest pressure. Denies chest pain and the pain radiation. Denies palpitation, abdominal pain nausea vomiting. Complains of headache rating a 10 out of 10 that started today when she was short of breath. Patient reports that she used to be a heavy tobacco smoker however has not been smoking in the past few years. Denies fever and chills, sore throat, congestion, abdominal pain nausea vomiting. Denies drug use Ddx considered but are not limited to: Asthma exacerbation, COPD, hypoxia, respiratory distress Vital signs: are WNL, pt. is afebrile H&PE are most consistent with hypoxia ORDERS: EKG, Chest XR, cardiac labs ED INTERVENTIONS: Dexamethasone, 3 treatments of albuterol ipratropium, Toradol Patient was admitted with diagnosis of hypoxia to Dr. Geiger under supervision of : Uday pt stable at time of admission (Concha Addison) EKG Diagnostic Results Rate: normal Rhythm: NSR ST Segments: no acute changes Other Impression No acute ST changes (Concha Addison) Chest X-Ray Diagnostic Results Chest X-Ray Diagnostic Results : Chest X-Ray Ordered: Yes # of Views/Limited/Complete: 1 View Indication: Shortness of Breath EP Interpretation: Yes PA Xray: Interpretation reviewed, by supervising MD, and agrees with findings. Interpretation: no consolidation, no effusion, no pneumothorax Impression: No acute disease Electronically Signed by: Concha Guerrero PA-C (Concha Addison) Last Vital Signs Date Time Temp Pulse Resp B/P (MAP) Pulse Ox O2 Delivery O2 Flow Rate FiO2 07/12/19 19:05 98.3 07/12/19 18:50 72 26 95 Room Air 21 67 16 90 07/12/19 17:40 131/71 (Concha Addison) Disposition: ADMITTED INPATIENT Condition: Stable Referrals: NOT CHOSEN IPA/,REFERRING (PCP) Concha Addison Jul 12, 2019 19:33 Lennox Frye MD Jul 12, 2019 19:35
--- NOTE | 2019-07-12 20:45 | NUR ---
TRANSFER TO FLOOR: Patient transferred to as ordered, per DR Cook. Report given to DEWAYNE Ugalde. Belongings and medications given to . Family and or S/O informed of transfer.
[2019-07-12] MEDS ORDERED: SIMVASTATIN40 MG ORAL (20:48)
[2019-07-12 21:00] VITALS: BP 121/60
[2019-07-12] MEDS ORDERED: Enoxaparin 40mg Inj SUBQ SCH (21:00)
--- NOTE | 2019-07-12 21:15 | NUR ---
NURSE NOTES: RECEIVED PATIENT FROM ER. PATIENT ALERT AND ORIENTED X3, DENIES PAIN OR SOB AT THIS TIME. PLACED PATIENT ON TELE, SR ON A MONITOR. BELONGINGS CHECKED WITH ER NURSE. PATIENT DECLINED TO PLACE VALUABLES IN HOSPITAL SAFE. FALL PRECAUTIONS IN PLACE: CALL LIGHT, BEDSIDE TABLE AND COMMODE WITHIN REACH, BED IN LOW POSITION. PLAN OF CARE REVIEWED.
[2019-07-12] MEDS ORDERED: OMEPRAZOLE40 M1 ORAL (22:57)
[2019-07-12] MEDS ORDERED: COZAAR25 MG ORAL (22:57)
[2019-07-12] MEDS ORDERED: FUROSEMIDE20 M1 ORAL (22:57)
[2019-07-12] MEDS ORDERED: APRISO0.375 GM PO (22:58)
[2019-07-12] MEDS ORDERED: TURMERIC1 GM MC (23:02)
[2019-07-12] MEDS ORDERED: VITAMIN D10000 UNIT PO (23:02)
--- NOTE | 2019-07-12 23:08 | NUR ---
NURSE NOTES: CALLED AND NOTIFIED DR. BRWON RE ABG RESULTS. NO NEW ORDERS GIVEN
[2019-07-12] MEDS: Solu-MEDROL 40mg Inj IVP SCH (23:36)
[2019-07-13] VITALS: BP 130/67
[2019-07-13] MEDS: Albuterol/Ipratropium 3ml neb HHN SCH ×3 (01:25→13:00)
--- NOTE | 2019-07-13 01:45 | History and Physical Report ---
DATE OF ADMISSION: 07/12/2019 REASON FOR ADMISSION: 1. Shortness of breath. 2. Asthma exacerbation. HISTORY OF PRESENT ILLNESS: The patient is a 69-year-old female with known asthma. She states she has multiple exacerbations per year. She had been seen in the emergency room several times in the recent past, been given IV steroids and antibiotics and sent home. She states since being home, she had not been feeling well. Shortness of breath progressively got worse despite using albuterol five to six times per day. As such, she presented to the emergency room for further evaluation and care, noted to be hypoxic. As such, the patient was admitted for further evaluation and care of asthma exacerbation. The patient quit smoking over 30 years ago. ALLERGIES: No known drug allergies. PAST MEDICAL HISTORY: 1. Asthma. 2. COPD. PAST SURGICAL HISTORY: None. SOCIAL HISTORY: The patient quit smoking 30 years ago. No alcohol or illicit drug use FAMILY HISTORY: Positive for asthma. LABORATORY DATA: Laboratories dated, July 12, 2019, white cell count 13, hemoglobin 9.6, and platelet count 472. Sodium 141, potassium 3.9, creatinine 0.8. Troponin 0.01. PHYSICAL EXAMINATION: VITAL SIGNS: Blood pressure 131/71, respiratory rate 26, pulse 96, temperature 98.3, 95% oxygen saturation on room air. GENERAL: The patient awake, alert, in mild distress. HEENT: Extraocular muscles intact. No lymphadenopathy noted. Oropharyngeal mucosa is clear and dry. CARDIOVASCULAR: S1, S2. No rubs or gallops. PULMONARY: Diffuse mild expiratory wheezing. ABDOMEN: Nondistended and nontender. Good bowel sounds. EXTREMITIES: No edema. ASSESSMENT AND PLAN: 1. Asthma exacerbation. At this time, the patient will be given IV steroids along with azithromycin in addition to hydration and nebulizer treatments. Pulmonary has been consulted, Dr. Patel, for further evaluation and care. 2. Dehydration. We will continue IV fluids. 3. DVT prophylaxis with Lovenox. 4. GI prophylaxis with famotidine. Nitin Martinez MD DR: LEO/DANETTE JOB#: [id number] CC:
[2019-07-13 04:00] VITALS: BP 117/59
[2019-07-13 05:10] LABS: HEMATOCRIT 27.4 % (37.0-47.0); HEMOGLOBIN 8.2 G/DL (12.0-16.0); MEAN CORPUSCULAR VOLUME 67 FL (80-99); PLATELET COUNT 436 K/UL (150-450); RED BLOOD COUNT 4.09 M/UL (4.20-5.40); RED CELL DISTRIBUTION WIDTH 16.1 % (11.6-14.8); WHITE BLOOD COUNT 11.2 K/UL (4.8-10.8)
[2019-07-13 05:26] LABS: ANION GAP 11 mmol/L (5-15); BLOOD UREA NITROGEN 19 mg/dL (7-18); CALCIUM 9.5 MG/DL (8.5-10.1); CARBON DIOXIDE 23 MMOL/L (21-32); CHLORIDE 108 MMOL/L (98-107); CREATININE 0.7 MG/DL (0.55-1.30); POTASSIUM 3.7 MMOL/L (3.5-5.1); SODIUM 142 MMOL/L (136-145)
[2019-07-13] MEDS: Solu-MEDROL 40mg Inj IVP SCH (05:32)
--- NOTE | 2019-07-13 07:19 | NUR ---
HAND-OFF: Report given to Hans HOPKINS RN. PATIENT RESTING IN BED, NO SIGNS OF DISTRESS NOTED.
--- NOTE | 2019-07-13 07:26 | Nephrology Progress Note ---
Assessment/Plan Assessment/Plan: A/P 1. Asthma exacerbation. -IV steroids along with azithromycin -hydration and nebulizer treatments. -Pulmonary has been consulted, Dr. Patel 2. Dehydration. IV fluids. 3. DVT prophylaxis with Lovenox. 4. GI prophylaxis with famotidine. Subjective Date patient seen: Jul 13, 2019 Time patient seen: 07:24 ROS Limited/Unobtainable: No Allergies: Coded Allergies: No Known Allergies (Unverified , 07/05/12) Subjective Breathing improved. No CP and wheezing also better Objective Last 24 Hour Vital Signs Date Time Temp Pulse Resp B/P (MAP) Pulse Ox O2 Delivery O2 Flow Rate FiO2 07/13/19 04:00 2.0 07/13/19 04:00 97.5 84 18 117/59 (78) 94 07/13/19 04:00 83 07/13/19 01:35 89 18 98 Nasal Cannula 2.0 28 07/13/19 01:25 84 18 94 Nasal Cannula 2.0 28 07/13/19 01:25 94 Nasal Cannula 2.0 28 07/13/19 00:00 85 07/13/19 00:00 2.0 07/13/19 00:00 97.7 86 18 130/67 (88) 96 07/12/19 22:00 Nasal Cannula 2.0 07/12/19 21:00 98.4 83 16 121/60 (80) 97 07/12/19 20:45 98.3 26 131/71 95 Room Air 21 07/12/19 19:15 98.6 96 22 125/75 98 Nasal Cannula 2.0 07/12/19 19:05 98.3 07/12/19 18:50 72 26 95 Room Air 21 67 16 90 07/12/19 17:44 86 16 100 Room Air 21 07/12/19 17:44 80 26 100 Room Air 21 86 16 100 07/12/19 17:40 98.2 32 131/71 91 Room Air 07/12/19 17:40 84 32 Room Air 07/12/19 17:30 98.2 84 32 131/71 (91) 91 Room Air Intake and Output 07/12/19 07/13/19 18:59 06:59 Intake Total 0 ml 795 ml Balance 0 ml 795 ml Intake Oral 0 ml 120 ml IV Total 675 ml # Voids 5 Laboratory Tests 07/12/19 17:50: Arterial Blood pH 7.375, Arterial Blood Partial Pressure CO2 38.3, Arterial Blood Partial Pressure O2 < 45.3*L, Arterial Blood HCO3 21.9L, Arterial Blood Oxygen Saturation 75.1*L, Arterial Blood Base Excess -3.0L, Braden Test Positive 07/12/19 18:00: White Blood Count 13.0H, Red Blood Count 4.67, Hemoglobin 9.6L, Hematocrit 31.6L , Mean Corpuscular Volume 68L, Mean Corpuscular Hemoglobin 20.5L, Mean Corpuscular Hemoglobin Concent 30.3L, Red Cell Distribution Width 13.9, Platelet Count 472H, Mean Platelet Volume 6.4L, Neutrophils (%) (Auto) 65.8, Lymphocytes (%) (Auto) 25.2, Monocytes (%) (Auto) 6.4, Eosinophils (%) (Auto) 1.8, Basophils (%) (Auto) 0.7, Prothrombin Time 10.1, Prothromb Time International Ratio 0.9, Activated Partial Thromboplast Time 23, Sodium Level 141, Potassium Level 3.9, Chloride Level 105, Carbon Dioxide Level 24, Anion Gap 12, Blood Urea Nitrogen 22H, Creatinine 0.8, Estimat Glomerular Filtration Rate > 60, Glucose Level 108H, Calcium Level 10.3H, Total Bilirubin 0.3, Aspartate Amino Transf (AST/SGOT) 15, Alanine Aminotransferase (ALT/SGPT) 22, Alkaline Phosphatase 73, Troponin I 0.012, Total Protein 7.8, Albumin 3.8, Globulin 4.0, Albumin/Globulin Ratio 0.9L 07/12/19 18:45: Urine Color Yellow, Urine Appearance Slightly cloudy, Urine pH 5, Urine Specific [place] 1.025, Urine Protein 1+H, Urine Glucose (UA) Negative, Urine Ketones 1+H, Urine Blood Negative, Urine Nitrite Negative, Urine Bilirubin Negative, Urine Urobilinogen 1H, Urine Leukocyte Esterase 3+H, Urine RBC 2-4H, Urine WBC 20-30H, Urine Squamous Epithelial Cells Few, Urine Bacteria Few 07/12/19 22:46: Arterial Blood pH 7.407, Arterial Blood Partial Pressure CO2 29.3L, Arterial Blood Partial Pressure O2 86.4, Arterial Blood HCO3 18.0L, Arterial Blood Oxygen Saturation 96.0, Arterial Blood Base Excess -5.8L, Braden Test Positive 07/13/19 04:36: White Blood Count 11.2H, Red Blood Count 4.09L, Hemoglobin 8.2L, Hematocrit 27.4L, Mean Corpuscular Volume 67L, Mean Corpuscular Hemoglobin 20.1L, Mean Corpuscular Hemoglobin Concent 30.1L, Red Cell Distribution Width 16.1H, Platelet Count 436, Mean Platelet Volume 6.9, Neutrophils (%) (Auto) , Lymphocytes (%) (Auto) , Monocytes (%) (Auto) , Eosinophils (%) (Auto) , Basophils (%) (Auto) , Sodium Level 142, Potassium Level 3.7, Chloride Level 108H, Carbon Dioxide Level 23, Anion Gap 11, Blood Urea Nitrogen 19H, Creatinine 0.7, Estimat Glomerular Filtration Rate > 60, Glucose Level 162H, Calcium Level 9.5 Height (Feet): 5 Height (Inches): 5.00 Weight (Pounds): 132 General Appearance: no apparent distress, alert EENT: normal ENT inspection Neck: normal alignment, supple Cardiovascular: normal rate, regular rhythm Respiratory/Chest: expiratory wheezing Abdomen: non tender, soft Edema: no edema noted Arm (L), no edema noted Arm (R), no edema noted Leg (L), no edema noted Leg (R), no edema noted Pedal (L), no edema noted Pedal (R), no edema noted Generalized Nitin Martinez MD Jul 13, 2019 07:26
--- NOTE | 2019-07-13 07:59 | NUR ---
NURSE NOTES: Report received from DEWAYNE Ugalde. Patient is sitting up in bed with no signs of distress, A+Ox4, denies pain/SOB. Respirations are even and unlabored on 2 L NC. IV site is intact and running fluids @ prescribed rate. Bed is at lowest position, brakes engaged, siderails x2, bed alarm on, and call light within reach. Pt is in stable condition; will continue to monitor.
[2019-07-13 08:00] VITALS: BP 131/72
[2019-07-13] MEDS ORDERED: Azithromycin 500 MG in NS 275 ML IV SCH (09:00)
--- NOTE | 2019-07-13 09:40 | NUR ---
PT EVALUATION NOTE Patient seen for initial evaluation. Patient demonstrates independent bed mobility, transfers and ambulation without assistive device. Patient denied dizziness or SOB during ambulation. Skilled inpatient PT intervention not indicated, patient discharged from PT, Swathi BUCHANAN notified of patient's status at the end of the session. Addendum: 07/13/19 at 1027 by CARMENCITA SOLANO PT Amended: Links added.
[2019-07-13] MEDS ORDERED: LEVAQUIN500 MG ORAL (11:14)
[2019-07-13] MEDS ORDERED: SYMBICORT 16010.2 G1 IH (11:14)
--- NOTE | 2019-07-13 12:50 | NUR ---
NURSE NOTES: Patient signed all discharge paperwork. All questions about medications answered. Prescriptions given to patient. IV, ID band, and test design engineer removed. Patient denies pain/SOB and is in stable condition. Patient discharged safely from floor with all belongings including iphone and andrade. Belongings list signed.
--- NOTE | 2019-07-13 13:34 | Diagnostic Imaging Report ---
Indication: Chest pain Technique: One view of the chest Comparison: 07/15/2018 Findings: The lungs and pleural spaces are clear. The heart size is normal. The aorta is calcified. No significant interim change Impression: No acute process
--- NOTE | 2019-07-13 16:15 | Consultation ---
DATE OF CONSULTATION: 07/13/2019 PULMONARY CONSULTATION CONSULTING PHYSICIAN: Ziyad Patel M.D. REFERRING PHYSICIAN: Nitin Martinez M.D. HISTORY OF PRESENT ILLNESS: This is a 69-year-old female with a history of asthma. She was admitted to the hospital with exacerbation of asthma. She was seen and worked up in the hospital. The patient has been smoker, but quit 20 years ago. PAST MEDICAL HISTORY: Asthma and COPD. PAST SURGICAL HISTORY: None. SOCIAL HISTORY: No alcohol usage. She admits to having tobacco use in the past. FAMILY HISTORY: Noncontributory. REVIEW OF SYSTEMS: Denies any headaches, hematemesis, melena, hematochezia, or weight loss. PHYSICAL EXAMINATION: GENERAL: Reveals a 69-year-old female. HEENT: Unremarkable. LUNGS: Clear breath sounds bilaterally with scattered rhonchi. ABDOMEN: Soft. NEUROLOGIC: Nonfocal. LABORATORY DATA: Lab testing shows white count 99904, hemoglobin 8.2, platelet count is normal. Chemistries normal except for glucose of 162. Microbiology, urine culture is negative. IMAGING STUDIES: Unremarkable. IMPRESSION: Exacerbation of bronchial asthma. DISCUSSION: Agree with present management and care. The patient has been started on respiratory treatments and pulmonary hygiene, which I concur with. She has also received Decadron and currently is on Solu-Medrol. 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 Agree with current management and care. We will follow. Ziyad Patel M.D. DR: JUAN JOB#: [id number] CC:
--- NOTE | 2019-07-14 09:31 | Discharge Summary ---
Discharge Summary Discharge Summary _ DATE OF ADMISSION: 07/12/2019 DATE OF DISCHARGE: 07/13/2019 DISCHARGED BY: Dr.De Salgado REASON FOR ADMISSION: 69 years old female with past medical history of asthma/COPD presented to emergency department due to continued wheezing , shortness of breath and chest pressure. Patient had recurrent asthma exacerbation and seen in emergency department multiply times. Patient reported taking inhaler and asthma medication with minimal relief. Symptoms were present for few days. Patient reported nonproductive cough. No hemoptysis. Patient denied chest pain. Patient denied palpitations. No fever or chills. No congestion. Patient denied abdominal pain , nausea and vomiting. Patient reported being a heavy tobacco smoker , however quit few years ago. No drug use. Upon evaluation patient was tachypneic with respiratory rate of 32 . ABG revealed evidence of hypoxia with PO2 of 45 and pulse oximetry 75% on room air. Patient was placed on supplemental oxygen. Troponin negative . EKG revealed sinus rhythm , no acute ischemic changes. Chest x-ray revealed no acute cardiopulmonary pathology. Stable electrolytes and renal parameters . Calcium 10.3. Urinalysis revealed pyuria , few bacteria , +3 leukocyte esterase. Patient subsequently admitted to telemetry floor for further management. CONSULTANTS: pulmonary Dr. Patel [facility]SE: Patient admitted to telemetry floor and started on the IV fluids. Warranty Manager followed. Supplemental oxygen provided and titrated to keep oximetry above 92% . Bronchodilator therapy via HHN provided. Follow-up ABG revealed resolved hypoxia. Patient started on empiric antibiotics and IV steroids with gradual tapering. DVT prophylaxis with Lovenox and GI prophylaxis with Pepcid provided. Patient remained afebrile. Leukocytosis trending down. Urine culture revealed mixed gram-positive organisms. Patient was able to be weaned to room air . Pulse oximetry was stable on room air. Renal parameters and electrolytes were closely monitored. BUN from 22 down to 19 , creatinine remained stable. Calcium down to normal ; initial mild hypercalcemia was likely due to dehydration. Patient clinically stabilized and was ready for discharge home. Prescription provided for Symbicort and Levaquin to complete the course as outpatient. Due to rapid and unexpected improvement in patient condition , patient was discharged in one day. FINAL DIAGNOSES: Asthma exacerbation Dehydration DISCHARGE MEDICATIONS: See Medication Reconciliation list. DISCHARGE INSTRUCTIONS: Patient was discharged home. Follow-up wit h primary care provider in 1 week. I have been assigned to dictate discharge summary for this account. I was not involved in the patient's management. Renee Castellanos NP Jul 14, 2019 09:31
--- NOTE | 2019-07-16 15:40 | Cardiology Report ---
APPROVED REPORT EKG Measurement Heart [id number] Normal sinus rhythm with sinus arrhythmia Normal ECG
== END 2019-07-13 13:32 | disposition home or self-care (01) | DRG 203 ==
LOC: EMR 17:55 → EDBEDREQ 20:00 → 2E 20:32
DX: J45.901 Unspecified asthma with (acute) exacerbation (principal); E86.0 Dehydration; Z23 Encounter for immunization; J44.9 Chronic obstructive pulmonary disease, unspecified; Z87.891 Personal history of nicotine dependence; R09.02 Hypoxemia
CPT/HCPCS: 36415; 36600; 71045; 80048; 80053; 81003; 82803; 84484; 85025; 85610; 85730; 87086; 90689; 93005; 94640; 94664; 96374; 96375; 99285; J7620

== ENCOUNTER 2020-07-03 20:08 | Emergency (ER) | payer MEDICARE, MEDICAID ==
[~2020-07-03] VITALS: Ht 154.9 cm; Wt 55.3 kg
[~2020-07-03 20:08] MED LIST changes: +APRISO0.375 GM PO; +COZAAR25 MG ORAL; +FUROSEMIDE20 M1 ORAL; +OMEPRAZOLE40 M1 ORAL; +SIMVASTATIN40 MG ORAL; +SYMBICORT 16010.2 G1 IH; +TURMERIC1 GM MC; +VITAMIN D10000 UNIT PO
--- NOTE | 2020-07-03 20:27 | NUR ---
ED Nurse Note: pt presents to ED s/p fall last PM. pt states that the floor was uneven causing her to slip and fall, landing onto her R side. pt now has pain diffusel throughout the R side of her body and an abrasion to the R cheek. pt is limping due to pain in hip, pain is exacerbated by deep breaths and coughing, movement and weight bearing. pt denies LOC, denies taking any blood thinners at this time
[2020-07-03 20:29] VITALS: BP 136/67
--- NOTE | 2020-07-03 20:52 | Emergency Room Report ---
History of Present Illness General Chief Complaint: Multiple Trauma/Fall Source: Patient Present Illness HPI Disclaimer: Please note that this report is being documented using DRAGON technology. This can lead to erroneous entry secondary to incorrect interpretation by the dictating instrument. HPI: 70-year-old female presents for evaluation of right side pain after a fall. The patient states she tripped over uneven pavement yesterday falling forward on an outstretched hand onto her right side. She impacted her head and face but did not lose consciousness. Does not take anticoagulants. Reports headache but no changes in vision. Denies neck or back pain. She reports pain over the right lower ribs and pain with deep inspiration as well as bending and twisting motion. Some pain in the right shoulder and in the pinky and ring finger on the right hand as well. Denies pain over the thumb or anatomic snuffbox or in the wrist. Reports pain on the right hip but is able to ambulate. PMH: Reviewed PSH: Reviewed Allergies: Reviewed Social Hx: Reviewed Allergies: Coded Allergies: No Known Allergies (Unverified , 07/05/12) COVID-19 Screening Contact w/high risk pt: No Experienced COVID-19 symptoms?: No COVID-19 Testing performed POLICY ADVISER: No Nursing Documentation-PMH Hx Cardiac Problems: No Hx Asthma: Yes Hx COPD: Yes Hx Cancer: No Hx Gastrointestinal Problems: Yes - collitis Hx Neurological Problems: No Review of Systems All Other Systems: negative except mentioned in HPI Physical Exam Vital Signs Date Time Temp Pulse Resp B/P (MAP) Pulse Ox O2 Delivery O2 Flow Rate FiO2 07/03/20 20:18 97.3 57 20 136/67 (90) 96 Room Air General: Awake and alert, no acute distress HEENT: Normocephalic, atraumatic. Small abrasion over the right maxilla and over the right pentecostalism. No hematoma. No tenderness or soft tissue swelling over the facial bones. EOMI. PERRLA. No septal hematoma. No oral lacerations. Dentition is intact. No malocclusion Neck: Supple, trachea midline. Arrives without cervical collar Chest Wall: Tenderness palpation over the right lower ribs anterior axillary line without palpable crepitus or deformity CV: RRR. S1 and S2 normal. No murmur appreciated Resp: Normal work of breathing. No cough, wheezing or crackles appreciated Abd: Soft, nontender, nondistended Skin: Intact. No abrasions, laceration or rash over the exposed skin MSK: Normal tone and bulk. No obvious deformity. Moving all extremities. Ambulating without difficulty. Pelvis is stable. There is tenderness at the base of the right pinky without palpable deformity. No tenderness anatomic snuffbox. Full range of motion at the wrist. Some tenderness over the anterior shoulder on the right side. Neuro: Awake and alert. Mentating appropriately. Sensation is intact to light touch over the dermatomes of the upper and lower extremities Spine: There is no tenderness, step-off or deformity in the cervical, thoracic or lumbosacral spine. Medical Decision Making Diagnostic Impression: Primary Impression: Rib contusion Additional Impressions: Thigh contusion Contusion, hip Facial contusion ER Course 70-year-old female presents after a fall on uneven pavement yesterday. Concern for intracranial injury, and rib fracture, hand or shoulder injury imaging was ordered. CT scan of the head, cervical spine and torso does not find acute injury. I do not appreciate an acute fracture or dislocation in the hand or shoulder. Placed the patient's pinky finger and splint for comfort but patient declined a sling for the arm. Will discharge with analgesics and lidocaine patches. Follow-up with PMD. Instructed to return with new or worsening symptoms. She understands and agrees with this treatment plan. Other X-Ray Diagnostic Results Other X-Ray Diagnostic Results #1: X-Ray ordered: Right hand # of Views/Limited Vs Complete: Complete Indication: Pain EP Interpretation: Yes Interpretation: no dislocation, no soft tissue swelling, no fractures Impression: No acute disease Electronically Signed by: Electronically signed by Dr. Lennox Frye MD Other X-Ray Diagnostic Results #2: X-Ray ordered: Right shoulder # of Views/Limited Vs Complete: Complete Indication: Pain EP Interpretation: Yes Interpretation: no dislocation, no soft tissue swelling, no fractures Impression: No acute disease Electronically Signed by: Electronically signed by Dr. Lennox Frye MD Last Vital Signs Date Time Temp Pulse Resp B/P (MAP) Pulse Ox O2 Delivery O2 Flow Rate FiO2 07/03/20 20:29 57 20 Room Air 07/03/20 20:29 97.3 136/67 96 Disposition: HOME, SELF-CARE Condition: Stable Scripts Ibuprofen* (MOTRIN*) 600 Mg Tablet 600 MG ORAL Q6H PRN for For Pain, #30 TAB 0 Refills Prov: Lennox Frye MD 07/03/20 Acetaminophen* (TYLENOL EXTRA STRENGTH*) 500 Mg Tablet 500 MG ORAL Q8H PRN for Prn Headache/Temp > 101, #30 TAB 0 Refills Prov: Lennox Frye MD 07/03/20 Lidocaine (Lidocaine) 1 Each Adh..patch 700 MG TP DAILY, #20 PATCH Prov: Lennox Frye MD 07/03/20 Lennox Frye MD Jul 03, 2020 20:52
--- NOTE | 2020-07-03 21:23 | Diagnostic Imaging Report ---
EXAM: CT Head Without Intravenous Contrast CLINICAL HISTORY: PAIN EXAM: CT Head Without Intravenous Contrast CLINICAL HISTORY: PAIN Status post fall with right sided body pain. TECHNIQUE: Axial computed tomography images of the head/brain without intravenous contrast. CTDI is 53.4 mGy and DLP is 992.1 mGy-cm. One or more of the following dose reduction techniques were used: automated exposure control, adjustment of the mA and/or kV according to patient size, use of iterative reconstruction technique. COMPARISON: Same day study at 12:03 PM. FINDINGS: No acute intracranial process. No intracranial hemorrhage or evidence of edema. The ventricles are normal in size. No acute fracture. Persistent diffuse opacification of the paranasal sinuses consistent with chronic sinusitis. IMPRESSION: No acute intracranial process. No significant interval change from the previous same day head CT.
--- NOTE | 2020-07-03 21:33 | Diagnostic Imaging Report ---
EXAM: CT Maxillofacial Without Intravenous Contrast CLINICAL HISTORY: PAIN, status post fall. TECHNIQUE: Axial computed tomography images of the face without intravenous contrast. CTDI is 15.3 mGy and DLP is 343.0 mGy-cm. One or more of the following dose reduction techniques were used: automated exposure control, adjustment of the mA and/or kV according to patient size, use of iterative reconstruction technique. COMPARISON: No relevant prior studies available. FINDINGS: Bones/joints: No acute fracture. Soft tissues: Right premaxillary soft tissue contusion (8: 36). No evaluation of the partially visualized enlarged right thyroid gland, please refer to separate chest CT report. Orbits: Unremarkable. Sinuses: Left maxillary, ethmoid and frontal sinus disease. IMPRESSION: 1. No acute fracture/dislocation. 2. Right premaxillary soft tissue contusion 3. Ethmoid, frontal and left maxillary sinus disease.
[2020-07-03 21:45] VITALS: BP 136/67
--- NOTE | 2020-07-03 21:45 | NUR ---
ER DISCHARGE NOTE: Patient is cleared to be discharged per ERMD, pt is aox4, on room air, with stable vital signs. pt was given dc and prescription instructions, pt was able to verbalize understanding, pt id band and removed without complications. pt is able to ambulate with steady gait. pt took all belongings.
--- NOTE | 2020-07-03 21:59 | Diagnostic Imaging Report ---
EXAM: CT Chest Without Intravenous Contrast CLINICAL HISTORY: PAIN, status post fall, right-sided pain. TECHNIQUE: Axial computed tomography images of the chest without intravenous contrast. CTDI is 5.1 mGy and DLP is 346.0 mGy-cm One or more of the following dose reduction techniques were used: automated exposure control, adjustment of the mA and/or kV according to patient size, use of iterative reconstruction technique. COMPARISON: No relevant prior studies available. FINDINGS: Evaluation of the soft tissue and vasculature is limited on this noncontrast exam. Lungs: Subsegmental atelectasis is identified within the right middle, lingula and bilateral lower lobes. No focal consolidation. The central airways are patent. Pleural space: No pneumothorax. No significant effusion. Heart: No cardiomegaly. No significant pericardial effusion. Bones/joints: No acute fracture. No dislocation. Soft tissues: Enlarged thyroid gland containing multiple nodules, some with coarse calcifications (9: 11). Vasculature: No thoracic aortic aneurysm. Evaluation for dissection limited on this noncontrast exam. Thoracic aortic calcifications. Lymph nodes: Unremarkable. No enlarged lymph nodes. IMPRESSION: 1. No acute intrathoracic traumatic process. 2. No acute fractures. 3. Incidental note is made of an enlarged thyroid gland containing multiple nodules, some with coarse calcifications. Consider correlation with outpatient thyroid ultrasound, if clinically indicated. EXAM: CT Abdomen and Pelvis Without Intravenous Contrast CLINICAL HISTORY: PAIN, status post trauma with right-sided body pain. TECHNIQUE: Axial computed tomography images of the abdomen and pelvis without intravenous contrast. CTDI is 5.1 mGy and DLP is 346.0 mGy-cm. One or more of the following dose reduction techniques were used: automated exposure control, adjustment of the mA and/or kV according to patient size, use of iterative reconstruction technique. COMPARISON: 01/11/2015 CT scan of the abdomen. FINDINGS: Evaluation of the soft tissue and vasculature is limited on this noncontrast exam. ABDOMEN: Liver: Course calcifications identified in the liver, likely sequela of prior granulomatous infection. Gallbladder and bile ducts: Unremarkable. No calcified stones. No ductal dilation. Pancreas: Unremarkable. No ductal dilation. Spleen: Unremarkable. No splenomegaly. Adrenals: Unremarkable. No mass. Kidneys and ureters: 4 mm left renal stone. No obstructing stones. No hydronephrosis. Stomach and bowel: Stable posterior gastric diverticulum (9: 73). No obstruction. No mucosal thickening. PELVIS: Bladder: Unremarkable. No stones. Reproductive: The uterus is present. Right adnexal cystic structure measuring 25 mm (9: 164) ABDOMEN and PELVIS: Intraperitoneal space: Unremarkable. No free air. No significant fluid collection. Bones/joints: No acute fracture. No dislocation. Mild degenerative changes are noted in the lumbar spine. Soft tissues: Right hip subcutaneous contusion (9: 188, sommer images). Vasculature: Vascular calcifications. No abdominal aortic aneurysm. Lymph nodes: Unremarkable. No enlarged lymph nodes. IMPRESSION: 1. No acute intra-abdominal or pelvic process on this noncontrast CT scan. 2. No acute fracture or dislocation. 3. Right hip soft tissue contusion. 4. Nonobstructing 4 mm left renal stone.
[2020-07-03] MEDS ORDERED: IBUPROFEN600 M1 ORAL (22:21)
[2020-07-03] MEDS ORDERED: TYLENOL EXTRA500 MG ORAL (22:21)
[2020-07-03] MEDS ORDERED: LIDOCAINE700 M1 TP (22:21)
[2020-07-03] MEDS ORDERED: HYDROcodone/Acetamin 5/325 tab ORAL ONE (22:30)
--- NOTE | 2020-07-04 16:04 | Diagnostic Imaging Report ---
Indication: Pain, status post fall yesterday Technique: 3 views right hand Comparison: none Findings: Linear sclerotic opacity is seen in the scaphoid, may indicate old injury. There are degenerative changes of the lateral intercarpal joint and first carpometacarpal joint. There is degenerative erosive arthropathy of the second and third distal interphalangeal joints, and degenerative arthropathy of the fourth and fifth distal interphalangeal joints of the third fourth and fifth proximal interphalangeal joints. There is evidence of some deformity of the second and third distal interphalangeal joints as well as degenerative remodeling of the second and third middle phalangeal heads. The bones are osteoporotic. There is a ring on the ring finger which reportedly could not be removed, but is here pathology Impression: No definite acute abnormality Degenerative changes and osteoporosis, as described
--- NOTE | 2020-07-04 16:06 | Diagnostic Imaging Report ---
Indication: Pain, status post fall yesterday Technique: 3 views of the right shoulder Comparison: none Findings: Acute fracture. No dislocation. Joint spaces are preserved. The bones are osteoporotic Impression: No acute bony trauma
== END 2020-07-03 21:45 | disposition home or self-care (01) ==
LOC: EMR 21:00
DX: S20.211A Contusion of right front wall of thorax, initial encounter (principal); S70.11XA Contusion of right thigh, initial encounter; S70.01XA Contusion of right hip, initial encounter; S00.83XA Contusion of other part of head, initial encounter; S00.81XA Abrasion of other part of head, initial encounter; W01.0XXA Fall on same level from slipping, tripping and stumbling without subsequent striking against object, initial encounter; Y92.480 Sidewalk as the place of occurrence of the external cause; J44.9 Chronic obstructive pulmonary disease, unspecified; E04.2 Nontoxic multinodular goiter; N20.0 Calculus of kidney; M81.0 Age-related osteoporosis without current pathological fracture
CPT/HCPCS: 70450; 70486; 71250; 74176; 99284